=== PATIENT | male | born 1945 | race Caucasian/White ===

== ENCOUNTER 2022-11-26 11:07 | Emergency (ER) | payer MEDICARE, BC, SELFPAY ==
[2022-11-26 12:10] VITALS: BP 156/83; PULSE 61; TEMP 36.7; O2SAT 95; BMI 41.1
--- NOTE | 2022-11-26 14:34 | W.ED.COVID ---
HPI - COVID General: Chief Complaint: COVID symptoms Stated Complaint: Covid + SOB Time Seen by Provider: 11/26/22 12:47 History of Present Illness: Patient states that he started feeling nasal congestion, headache, cough on Friday night. He took a COVID-19 test then and was negative. He tested positive today. He is having occasional shortness of breath. He reports that he has a history of high blood pressure and takes medications for that. He states that his is in a fpc and recently had COVID and was quarantined. COVID 19 common symptoms: positive fever(s), chills, non-productive cough, fatigue, body aches, headache(s) and nasal congestion; negative dyspnea, nausea or vomiting COVID 19 other sytmptoms: negative chest pain COVID Results: No Data to Display Review of Systems Const: Reports: fever(s), chills, body aches and fatigue ENMT: Reports: nasal discharge, nasal congestion and post nasal drip Card: Denies: chest pain or palpitations Resp: Reports: non-productive cough and wheezing; Denies: dyspnea GI: Denies: abdominal pain, nausea or vomiting : Denies: flank pain, dysuria or urinary frequency Neuro: Reports: headache(s); Denies: numbness in extremities, weakness in extremities, sensory changes or lack of coordination Physical Exam Const: COMMON NORMALS: no acute distress, patient oriented x3 and alert HENMT: COMMON NORMALS: TM's normal bilaterally NOSE: Nasal discharge present clear TYMPANIC MEMBRANE: TM's normal bilaterally THROAT: uvula midline and postnasal drainage Neck/C-Spine: COMMON NORMALS: no JVD Resp: COMMON NORMALS: normal respiratory effort, No use of accessory muscles and clear to auscultation bilaterally AUSCULTATION: clear to auscultation bilaterally Cardio: COMMON NORMALS: no JVD, regular rate, regular rhythm, S1 normal heart sound present, S2 normal heart sound present and No murmurs present (Cardio) RATE: regular rate RHYTHM: regular rhythm HEART SOUNDS: S1 normal heart sound present and S2 normal heart sound present Neuro: COMMON NORMALS: patient oriented x3, CN's II-XII intact bilaterally and moves all extremities SENSORIUM/ORIENTATION: Yes alert Course Vital Signs: Vital signs: Vital Signs Temperature 98.1 F 11/26/22 14:51 Pulse Rate 60 11/26/22 14:51 Respiratory Rate 14 11/26/22 14:51 Blood Pressure 167/89 11/26/22 14:51 Pulse Oximetry 97 11/26/22 14:51 Oxygen Delivery Me thod 11/26/22 14:51 MDM - COVID Medical Decision Making Patient test positive for COVID-19 at home today brings in the test with him. He had an exposure to the fpc where his is staying. Patient has a history of hypertension. Given his age and comorbidity we will go ahead and start patient on Paxlovid. Discussed possible benefits and side effects of this medication with the patient. Davey conservative care at home for her COVID-19. Discussed CDC quarantine guidelines. Advised patient to follow-up with primary care provider as needed. Return to the ER for any new or worsening symptoms. Lab Data No Data to Display Discharge Plan Discharge Patient Disposition: Home Clinical Impression: Suspected severe acute respiratory syndrome coronavirus 2 (SARS-CoV-2) infection Condition: Stable Prescriptions: New Paxlovid (EUA) 300 mg (150 mg x 2)-100 mg tablets,dose pack See Rx Instructions .ROUTE .COMPLEX Qty: 30 0RF Rx Instructions: orally per package directions Discharge Orders: Discharge ED (Routine); Ordered 11/26/22 Ordered By: Farzana Mandujano Discharge Diet: Usual diet Discharge Activity: Resume usual activity Patient Instructions: COVID-19 (Coronavirus Disease 2019) (ED) Activity Restrictions/Additional Instructions: Take medication as prescribed. Make sure that you are staying well-hydrated. Quarantine for 5 days as per CDC guidelines. Follow-up with primary care provider as needed. Return to the ER for new or worsening symptoms Coding Level of Care Code ED Lithography Contact Worker for Marivel Khan
[2022-11-26 14:48] VITALS: O2SAT 97
[2022-11-26 14:51] VITALS: BP 167/89; PULSE 60; RESP 14; TEMP 36.7; O2SAT 97
== END 2022-11-26 14:45 | disposition home or self-care (01) ==
PROVIDERS: Emergency Provider Nurse Practitioner Family
DX: Z20.822 Contact with and (suspected) exposure to COVID-19 (principal)
CPT/HCPCS: 99283

== ENCOUNTER 2023-02-03 16:39 | Emergency (ER) | payer MEDICARE, BC, SELFPAY ==
[2023-02-03 16:49] VITALS: BP 148/85; PULSE 73; RESP 17; TEMP 37.2; O2SAT 94; BMI 39.1
[2023-02-03 17:29] LABS: Influenza A by IFA negative (Negative); Influenza B by IFA negative (Negative)
[2023-02-03 17:30] LABS: SARS Covid-2 Antigen negative (Negative)
[2023-02-03 17:49] VITALS: O2SAT 91
[2023-02-03 17:58] VITALS: BP 146/76; PULSE 71; RESP 17; TEMP 37.8; O2SAT 95
[2023-02-03] MEDS: acetaminophen 500 mg Tablet 1000 MG PO (18:17)
--- NOTE | 2023-02-03 19:08 | W.ED.COVID ---
HPI - COVID General: Chief Complaint: COVID symptoms Stated Complaint: fever/shaking Time Seen by Provider: 02/03/23 18:01 History of Present Illness: Patient is a 77-year-old male comes to the ED with viral symptoms. Symptoms started early this morning. He is been having multiple episodes of diarrhea today, nausea, fever, chills and body aches. He denies any episodes of emesis. He also endorses having some bladder pain that started a couple hours ago. Denies any upper respiratory symptoms such as nasal drainage or cough. Denies any chest pain, shortness of breath, abdominal pain, hematuria or blood in stool. COVID 19 common symptoms: positive fever(s), chills, body aches, nausea and diarrhea; negative non-productive cough, productive cough, dyspnea, fatigue, headache(s), throat pain, nasal congestion or vomiting COVID 19 other sytmptoms: negative chest pain COVID Results: SARS-CoV-2 Antigen (Rapid) negative (Negative) 02/03/23 16:55 Review of Systems Const: Reports: fever(s), chills and body aches; Denies: fatigue Eyes: Denies: change in vision or eye discomfort ENMT: Denies: throat pain, odynophagia, nasal discharge or nasal congestion Card: Denies: chest pain, palpitations, edema, swelling of feet/ankles, dyspnea on exertion or orthopnea Resp: Denies: dyspnea, productive cough or non-productive cough GI: Reports: nausea and diarrhea; Denies: abdominal pain, vomiting, constipation or hematochezia : Reports: other (Bladder pain/tenderness); Denies: flank pain, difficulty urinating, dysuria or hematuria Musc: Denies: neck pain, back pain or extremity swelling Skin/Breast: Denies: rash or new lesions Neuro: Denies: headache(s), numbness in extremities or weakness in extremities PFS ED PFSH: Medical History (Updated 02/04/23 @ 00:18 by TRISTIN Snow) Essential tremor No pertinent family history Physical Exam Const: COMMON NORMALS: patient oriented x3 and alert GENERAL APPEARANCE: cooperative HENMT: COMMON NORMALS: normocephalic HEAD & SCALP: normocephalic MOUTH: Normal oral and palatal mucosa present THROAT: posterior oropharynx normal and uvula midline Neck/C-Spine: COMMON NORMALS: supple GENERAL: Yes normal visual inspection Resp: COMMON NORMALS: normal respiratory effort, No retractions, No use of accessory muscles and clear to auscultation bilaterally AUSCULTATION: clear to auscultation bilaterally Cardio: COMMON NORMALS: regular rate, regular rhythm, S1 normal heart sound present, S2 normal heart sound present, No gallops present (Cardio), No clicks present (Cardio), No murmurs present (Cardio) and Peripheral pulses 2+ throughout RATE: regular rate RHYTHM: regular rhythm HEART SOUNDS: S1 normal heart sound present and S2 normal heart sound present PERIPHERAL PULSES: Peripheral pulses 2+ throughout GI: COMMON NORMALS: Normal to inspection, nondistended, normoactive bowel sounds present, Soft to palpation, non-tender and no masses PALPATION: Yes Soft to palpation : COMMON NORMALS: Yes no CVA tenderness BLADDER/KIDNEY EXAM: Yes no CVA tenderness Back/Pelvis: COMMON NORMALS: no CVA tenderness Extremity: COMMON NORMALS: normal to inspection Neuro: COMMON NORMALS: patient oriented x3 SENSORIUM/ORIENTATION: Yes alert GAIT: Yes Normal gait present Skin: GENERAL SKIN EXAM: dry skin Course Vital Signs: Vital signs: Vital Signs Temperature 100.3 F H 02/03/23 20:20 Pulse Rate 68 02/03/23 20:20 Respiratory Rate 16 02/03/23 20:20 Blood Pressure 126/71 02/03/23 20:20 Pulse Oximetry 94 02/03/23 20:20 Oxygen Delivery Me thod 02/03/23 20:20 MDM - COVID Medical Decision Making Patient is a 77-year-old male comes to the ED with viral symptoms. Symptoms started early this morning. He is been having multiple episodes of diarrhea today, nausea, fever, chills and body aches. He denies any episodes of emesis. He also endorses having some bladder pain that started a couple hours ago. Denies any upper respiratory symptoms such as nasal drainage or cough. Denies any chest pain, shortness of breath, abdominal pain, hematuria or blood in stool. Patient has a temp of 100.3 but the rest of vitals are stable. Exam of patient is benign and he has no abdominal or CVA tenderness. Influenza and COVID test were negative. UA was clean and showed no signs of UTI. Patient was diagnosed with a viral syndrome and he was given a dose of Zofran and Tylenol here in the ED. He was stable for discharge home and sent home with a prescription for Zofran to help with nausea. He was told to make sure he drinks plenty of fluids and stays hydrated. Follow-up with his PCP within the next 3 to 5 days for reevaluation. Return ED precautions given. Patient understood and agreed with plan. Lab Data I reviewed the patient's lab results. Laboratory Results Urine Color Yellow (Yellow) 02/03/23 19:29 Urine Appearance Clear (CLEAR) 02/03/23 19:29 Urine pH 5 (5-7) 02/03/23 19:29 Ur Specific K[place]aid 1.020 (1.005-1.030) 02/03/23 19:29 Urine Protein Trace (Negative) 02/03/23 19: Urine Glucose (UA) Norm (Normal) 02/03/23 19:29 Urine Ketones Negative (Negative) 02/03/23 19:29 Urine Blood Neg (Negative) 02/03/23 19:29 Urine Nitrate Negative (Negative) 02/03/23 19:29 Urine Bilirubin Neg (Negative) 02/03/23 19:29 Urine Urobilinogen Norm mg/dL (Negative) 02/03/23 19:29 Ur Leukocyte Esterase Negative (Negative) 02/03/23 19:29 Urine RBC None /hpf (0-2) 02/03/23 19:29 Urine WBC None /hpf (0-5) 02/03/23 19:29 Ur Squamous Epith Cells None /hpf (0-5) 02/03/23 19:29 Amorphous Sediment Not Reportable 02/03/23 19:29 Urine Bacteria None /hpf (NONE) 02/03/23 19:29 Influenza Type A Ag negative (Negative) 02/03/23 16:55 Influenza Type B Ag negative (Negative) 02/03/23 16:55 SARS-CoV-2 Ag (Rapid) negative (Negative) 02/03/23 16:55 SARS-CoV-2 Antigen (Rapid) negative (Negative) 02/03/23 16:55 Discharge Plan Discharge Patient Disposition: Home Clinical Impression: Viral syndrome Condition: Stable Prescriptions: New ondansetron 4 mg tablet,disintegrating 4 mg PO Q8H PRN (Reason: nausea and vomiting) Qty: 15 0RF No Action Paxlovid (EUA) 300 mg (150 mg x 2)-100 mg tablets,dose pack See Rx Instructions .ROUTE .COMPLEX Qty: 30 0RF Rx Instructions: orally per package directions Discharge Orders: Discharge ED (Routine); Ordered 02/03/23 Ordered By: Stan Cuevas Referrals: Garry Costello DO [Primary Care Provider] - Discharge Diet: Advance as tolerated and Clear Liquid Discharge Activity: Increase activity as tolerated Patient Instructions: Viral Syndrome (ED) Activity Restrictions/Additional Instructions: Follow-up with your primary care doctor within the next 2 to 3 days for reevaluation. Make sure you drink plenty of fluids and stay hydrated. Take medications as prescribed. Take [id number] Tylenol for fevers. Return to the ER or your medical provider if condition worsens. Please read and understand discharge instructions. Thank you for choosing [facility] for your healthcare needs today. Please realize this is an emergency room and that we are providing you with a medical screening exam and this may not be complete and all inclusive of all the testing and or work up that you may need to determine your ailment or severity of your illness. It is very important that you follow up as instructed or that you return to the Emergency Department should you have concerns or if your condition changes or worsens in any way. Coding Level of Care Code ED Poultry Raiser for Marivel Khan
[2023-02-03] MEDS: ondansetron 2 mg/ML SDV 2 mL 4 MG IM (19:32)
[2023-02-03 19:52] LABS: Add Urine Microscopic? YES; Bilirubin Urine Neg (Negative); Blood Urine Neg (Negative); Glucose Urine UA Norm (Normal); Ketones Urine Negative (Negative); Leukocyte Esterase Urine Negative (Negative); Nitrate Urine Negative (Negative); Protein Urine Trace (Negative); Urine Appearance Clear (CLEAR); Urine Color Yellow (Yellow); Urobilinogen Urine Norm (Negative); pH Urine 5 (5-7)
[2023-02-03 20:20] VITALS: BP 126/71; PULSE 68; RESP 16; TEMP 37.9; O2SAT 94
== END 2023-02-03 20:19 | disposition home or self-care (01) ==
PROVIDERS: Physician Assistant; Emergency Provider Physician Assistant; PCP Internal Medicine
DX: B34.9 Viral infection, unspecified (principal); Z20.822 Contact with and (suspected) exposure to COVID-19
CPT/HCPCS: 81001; 87426; 87804; 96372; 99284; J2405

== ENCOUNTER 2024-08-20 22:08 | Emergency (ER) | payer MEDICARE, BC, MEDICAID, SELFPAY ==
[2024-08-20 22:11] VITALS: BP 134/73; PULSE 93; RESP 18; TEMP 37; O2SAT 97; BMI 33.3
--- NOTE | 2024-08-20 23:39 | W.ED.SKABFB ---
HPI - Skin/Abscess/Foreign Bdy General: Chief complaint: General Medical Stated complaint: puss coming from back surgery incision Time Seen by Provider: 08/20/24 23:23 Source: patient and family Mode of arrival: ambulatory Limitations: no limitations History of Present Illness: Patient is an 79-year-old male who presents to the ED today along with daughter and son-in-law for evaluation of possible infection to his spinal cord stimulator. Patient states yesterday evening he was chilling/shaking and feeling ill. He states this morning he noticed a gush of fluid from his spinal cord stimulator incision and stated it was purulent. He states stimulator was placed approximately [address] Zachariah Zambrano neurosurgery[address] Denies other symptoms. No URI symptoms, abdominal pain, N/V/D. No urinary symptoms. MD complaint: other (concern for infection to spinal cord stimulator ) Onset (ago): day(s) Location: back Severity: moderate Relieving factors: none Exacerbating factors: none Associated symptoms: Reports chills; Deny fever(s) Treatments prior to arrival: none Related Data Previous Rx's Medication Instructions Recorded nirmatrelvir 300 mg (150 mg See Rx Instructions PO .COMPLEX 11/26/22 x2)-ritonavir 100 mg tablet,dose #30 ea pack (Paxlovid) ondansetron 4 mg disintegrating 4 mg PO Q8H PRN nausea and 02/03/23 tablet vomiting #15 tabs Allergies Allergy/AdvReac Type Severity Reaction Status Date / Time Penicillins Allergy Unknown Unknown Verified 08/20/24 22:19 sulfasalazine Allergy Unknown Unknown Verified 08/20/24 22:19 idodine radio contrast Allergy Unknown Unknown Uncoded 08/20/24 22:19 Lexiscan Allergy Unknown Unknown Uncoded 08/20/24 22:19 Review of Systems Const: Reports: chills; Denies: fever(s), fatigue or malaise Card: Denies: chest pain Resp: Denies: dyspnea GI: Denies: abdominal pain : Denies: flank pain, dysuria or hematuria Musc: Denies: neck pain, extremity pain, extremity swelling, joint pain or joint swelling Skin/Breast: Reports: other (drainage from spinal cord stimulator ) Neuro: Denies: headache(s), numbness in extremities, weakness in extremities or sensory changes PFS ED PFSH: Medical History Essential tremor No pertinent family history Physical Exam Const: COMMON NORMALS: no acute distress, average body habitus, patient oriented x3, no limitations, healthy appearing, alert and well nourished GENERAL APPEARANCE: cooperative ORIENTATION/CONSCIOUSNESS: Yes awake, Yes oriented to person, Yes oriented to place and Yes oriented to time Neck/C-Spine: COMMON NORMALS: no lymphadenopathy GENERAL: Yes normal visual inspection Resp: COMMON NORMALS: normal respiratory effort and clear to auscultation bilaterally AUSCULTATION: clear to auscultation bilaterally Cardio: COMMON NORMALS: regular rate and regular rhythm RATE: regular rate RHYTHM: regular rhythm GI: COMMON NORMALS: Normal to inspection, nondistended, normoactive bowel sounds present, Soft to palpation and non-tender PALPATION: Yes Soft to palpation : COMMON NORMALS: Yes no CVA tenderness BLADDER/KIDNEY EXAM: Yes no CVA tenderness Back/Pelvis: COMMON NORMALS: no CVA tenderness, thoracic and lumbar spine normal to inspection and no thoracic nor lumbar tenderness BACK IMAGE (MALE): 1. battery pocket; mild surrounding erythema around wound edges; underlying induration; tenderness; no obvious fluctuance; no discharge I was able to express; no significant surrounding cellulitis Extremity: GENERAL: Yes normal exam except as noted Neuro: COMMON NORMALS: patient oriented x3, moves all extremities, no focal motor deficits and no sensory deficits noted SENSORIUM/ORIENTATION: Yes alert, Yes oriented to person, Yes oriented to place and Yes oriented to time Course Consultations: Consultation #1: Dr. Huynh neurosurgery; no beds available for transfer through [facility] so he is requesting send ED to ED and they will evaluate and plan for OR tomorrow for hardware removal; request NPO Consultation #2: Dr. Chawla-REFUGIO [facility] physician accepting transfer Vital Signs: Vital signs: Vital Signs Temperature 98.6 F 08/20/24 22:11 Pulse Rate 75 08/21/24 00:34 Respiratory Rate 18 08/20/24 22:11 Blood Pressure 113/56 08/21/24 00:34 Pulse Oximetry 97 08/21/24 00:34 Oxygen Delivery Me thod Room Air 08/21/24 00:34 MDM - Skin/Abscess/Foreign Bdy Medicial Decision Making Patient is a nice 79-year-old male here for evaluation of possible infection to his battery pocket of a spinal cord stimulator. This was placed at [facility] neurosurgery approximately 4 weeks ago. States yesterday evening he began feeling ill and shaking/chilling and today noticed a large gush of purulent fluid from his battery pocket site. He arrives with stable vital signs. Blood work showing a significantly elevated white count of 34.95 with a left shift. His inflammatory markers are significantly elevated with his CRP over 175. He has no other symptoms at this time to explain labs other than a deep space infection from hardware so this needs evaluated/ruled out. Spoke to [facility] neurosurgeon, Dr. Villalobos and he is requesting sent through ED as [facility] does not currently have bed availability. They will consult from there and plan on OR tomorrow for hardware removal. He has been started on IV vanc here. Dr. Reyes aware of patient and plan for transfer. Medical Records I reviewed the patient's medical records. Lab Data I reviewed the patient's lab results. 08/20/24 23:41 08/20/24 23:41 Laboratory Results WBC 34.95 10^3/uL (3.29-11.43) H* 08/20/24 23:41 RBC 4.20 10^6/uL (3.85-5.65) 08/20/24 23:41 Hgb 12.40 g/dL (11.27-16.99) 08/20/24 23:41 Hct 35.6 % (37-53) L 08/20/24 23:41 MCV 84.8 fl (82-101) 08/20/24 23:41 MCH 29.5 pg (27-33) 08/20/24 23:41 MCHC 34.8 g/dL (30-55) 08/20/24 23:41 RDW 13.7 % (12.1-15.1) 08/20/24 23:41 Plt Count 211 10^3/cmm (157-399) 08/20/24 23:41 MPV 9.4 fL (7.4-10.4) 08/20/24 23:41 Neut % (Auto) 85.1 % 08/20/24 23:41 Lymph % (Auto) 4.8 % 08/20/24 23:41 Churchill % (Auto) 7.9 % 08/20/24 23:41 Eos % (Auto) 0.1 % 08/20/24 23:41 Baso % (Auto) 0.2 % 08/20/24 23:41 Neut # (Auto) 29.74 10^3/uL (1.8-7.7) H 08/20/24 23:41 Lymph # (Auto) 1.7 10^3/uL (0.8-4.8) 08/20/24 23:41 Churchill # (Auto) 2.8 10^3/uL (0.2-0.9) H 08/20/24 23:41 Eos # (Auto) 0.0 10^3/uL (0.0-0.8) 08/20/24 23:41 Baso # (Auto) 0.1 10^3/uL (0.0-0.1) 08/20/24 23:41 Nucleated RBC % (auto) 0 % 08/20/24 23:41 Nucleated RBCs # 0.0 /100WBC 08/20/24 23:41 ESR 27 mm/hr (0-10) H 08/20/24 23:41 Sodium 126 mmol/L (136-145) L 08/20/24 23:41 Potassium 3.8 mmol/L (3.5-5.1) 08/20/24 23:41 Chloride 90 mmol/L (98-107) L 08/20/24 23:41 Carbon Dioxide 23 mmol/L (22-29) 08/20/24 23:41 Anion Gap 16.8 (5-19) 08/20/24 23:41 BUN 27 mg/dL (8-23) H 08/20/24 23:41 Creatinine 1.6 mg/dL (0.7-1.2) H 08/20/24 23:41 GFR Calculation Not Reportable 08/20/24 23:41 Glucose 104 mg/dL (65-115) 08/20/24 23:41 Calculated Osmolality 267 mOsm/kg (285-295) L 08/20/24 23:41 Lactic Acid 1.3 mmol/L (0.5-2.2) 08/20/24 23:41 Calcium 9.2 mg/dL (8.5-10.5) 08/20/24 23:41 Total Bilirubin 0.5 mg/dL (0.15-1.2) 08/20/24 23:41 AST 15 U/L (0-40) 08/20/24 23:41 ALT 14 U/L (0-41) 08/20/24 23:41 Alkaline Phosphatase 84 U/L (40-130) 08/20/24 23:41 C-Reactive Protein 175.5 mg/L (0.0-4.9) H 08/20/24 23:41 Total Protein 6.4 g/dL (6.6-8.7) L 08/20/24 23:41 Albumin 3.6 g/dL (3.5-5.2) 08/20/24 23:41 Globulin 2.8 g/dL (1.3-4.6) 08/20/24 23:41 XR interpretation done by ED provider, pending radiology final review Discharge Plan Discharge Patient Disposition: Transfer to ED Clinical Impression: Wound infection complicating hardware Qualifiers: Encounter type: initial encounter Qualified Code(s): T84.7XXA - Infection and inflammatory reaction due to other internal orthopedic prosthetic devices, implants and grafts, initial encounter Condition: Stable Prescriptions: No Action Paxlovid 300 mg (150 mg x 2)-100 mg tablets,dose pack See Rx Instructions .ROUTE .COMPLEX Qty: 30 0RF Rx Instructions: orally per package directions ondansetron 4 mg tablet,disintegrating 4 mg PO Q8H PRN (Reason: nausea and vomiting) Qty: 15 0RF Referrals: Garry Costello DO [Primary Care Provider] - Coding Level of Care Code ED Radiology Manager for Marivel Khan
[2024-08-20 23:46] LABS: Basophils # 0.1 10^3/uL (0.0-0.1); Basophils % 0.2 %; Eosinophils % 0.1 %; Hematocrit 35.6 % (37-53); Lymphocytes # 1.7 10^3/uL (0.8-4.8); Lymphocytes % 4.8 %; Mean Corpuscular HGB Conc 34.8 g/dL (30-55); Mean Corpuscular Hemoglobin 29.5 pg (27-33); Mean Corpuscular Volume 84.8 fl (82-101); Mean Platelet Volume 9.4 fL (7.4-10.4); Monocytes # 2.8 10^3/uL (0.2-0.9); Monocytes % 7.9 %; Neutrophils # 29.74 10^3/uL (1.8-7.7); Neutrophils % 85.1 %; Nucleated Red Blood Cells % 0 %; Platelet Count 211 10^3/cmm (157-399); Red Cell Distribution Width 13.7 % (12.1-15.1)
[2024-08-20 23:56] LABS: White Blood Count 34.95 10^3/uL (3.29-11.43)
[2024-08-20 23:59] LABS: Erythrocyte Sedimentation Rate 27 mm/hr (0-10)
[2024-08-21 00:04] LABS: Alanine Aminotransferase 14 U/L (0-41); Albumin Level 3.6 g/dL (3.5-5.2); Alkaline Phosphatase 84 U/L (40-130); Anion Gap 16.8 (5-19); Aspartate Amino Transferase 15 U/L (0-40); Blood Urea Nitrogen 27 mg/dL (8-23); C Reactive Protein 175.5 mg/L (0.0-4.9); Calcium 9.2 mg/dL (8.5-10.5); Carbon Dioxide 23 mmol/L (22-29); Chloride 90 mmol/L (98-107); Globulin 2.8 g/dL (1.3-4.6); Glucose 104 mg/dL (65-115); Osmolality Calculated 267 mOsm/kg (285-295); Potassium 3.8 mmol/L (3.5-5.1); Sodium 126 mmol/L (136-145); Total Bilirubin 0.5 mg/dL (0.15-1.2); Total Protein 6.4 g/dL (6.6-8.7)
[2024-08-21 00:06] LABS: Creatinine Clr Calc Pharmacy 40.1046
--- NOTE | 2024-08-21 00:09 | XRR_ITS ---
PROCEDURE INFORMATION: Exam: XR Chest Exam date and time: 08/21/2024 12:11 AM Age: 79 years old Clinical indication: Abnormal findings; Abnormal diagnostic tests; Abnormal ekg; Prior surgery; Surgery date: <1 month; Patient HX: Wbc of 35k. Patient states he is having drainage from incsision site of nerve stimulator placement one month ago. ; Additional info: Chills, elevated white count TECHNIQUE: Imaging protocol: Radiologic exam of the chest. Views: 1 view. COMPARISON: No relevant prior studies available. FINDINGS: Limitations: Patient rotation. Lungs: The lungs are clear. No pulmonary consolidation. Pleural spaces: No pleural effusion or pneumothorax. Heart/Mediastinum: Cardiomediastinal silhouette is suboptimally evaluated. Heart size is grossly within normal limits. Bones/joints: No acute osseous abnormalities are seen. XR/XR chest 1V portable [id number] IMPRESSION: No acute cardiopulmonary disease.
[2024-08-21 00:24] LABS: Lactic Sepsis W/Reflex 1.3 mmol/L (0.5-2.2)
[2024-08-21] MEDS: vancomycin 1,000 MG in sodium chloride 0.9% 250 ML 250 MG IV (00:30)
[2024-08-21 00:34] VITALS: BP 113/56; PULSE 75; O2SAT 97
[2024-08-21 01:30] VITALS: BP 117/53; PULSE 70; O2SAT 98
[2024-08-21 01:41] LABS: Bilirubin Urine Negative (Negative); Blood Urine Negative (Negative); Glucose Urine UA Negative (Normal); Ketones Urine Trace (Negative); Leukocyte Esterase Urine Negative (Negative); Nitrate Urine Negative (Negative); Protein Urine Negative (Negative); Specific Gravity, Urine 1.025 (1.005-1.030); Urine Appearance Clear (CLEAR); Urine Color Dark Yellow (Yellow); pH Urine 5.5 (5-7)
[2024-08-21 01:46] LABS: Add Urine Microscopic? YES; Bacteria Urine None Seen /hpf; Hyaline Casts Urine 10.73 /lpf; RBC Urine 0-2 /hpf (0-2); Squamous Epithelial Cell Urine 0-5 /hpf (0-5); Universal Test for UA Present (0); WBC Urine 0-5 /hpf (0-5)
[2024-08-21 02:11] VITALS: BP 100/62; PULSE 67; O2SAT 99
== END 2024-08-21 02:00 ==
PROVIDERS: Emergency Medicine; Emergency Provider Physician Assistant; PCP Internal Medicine
DX: T85.733A Infection and inflammatory reaction due to implanted electronic neurostimulator of spinal cord, electrode (lead), initial encounter (principal)
CPT/HCPCS: 36415; 71045; 80053; 81001; 83605; 85025; 85651; 86140; 87040; 96365; 99284; J3370; J7030; J7050